=== PATIENT | male | born 1975 | race American Indian/Alaskan Native ===

== ENCOUNTER → 2025-01-10 | Outpatient (CLI) | payer MEDICAID, SELFPAY ==
--- NOTE | 2025-01-10 16:38 | XR_ITS ---
Examination: AP knee single view TECHNIQUE: Standing AP knees single view Date and time: January 10, 2025 1652 hours INDICATIONS: Bilateral knee pain beginning 4 days ago. FINDINGS: Mild narrowing medial joint spaces. No fracture or dislocation. Faint meniscus calcification. IMPRESSION: Mild narrowing medial joint spaces
== END | disposition home or self-care (01) ==
PROVIDERS: PCP Physician Assistant; Referring Provider Nurse Practitioner Family; Visit Provider Nurse Practitioner Family
DX: M25.862 Other specified joint disorders, left knee (principal); M25.861 Other specified joint disorders, right knee
CPT/HCPCS: 73565